=== PATIENT | female | born 1970 | race Caucasian/White ===

== ENCOUNTER 2017-08-22 06:16 | Day surgery (SDC) | payer OTHER ==
[2017-08-20 11:05] VITALS: BMI 29.2
[2017-08-22] MEDS ORDERED: ROPIVACAINE HCL 0.5% 30ML VIAL ONE (07:26)
[2017-08-22] MEDS ORDERED: MIDAZOLAM HCL 2 MG/2 ML SINGLE DOSE VIAL ONE ×2 (07:27)
[2017-08-22] MEDS ORDERED: LIDOCAINE HCL/PF 2% SDV 5ML VIAL ONE (07:29)
[2017-08-22] MEDS ORDERED: PROPOFOL 20 ML ONE (07:29)
[2017-08-22] MEDS ORDERED: ROCURONIUM BROMIDE 50 MG/5 ML VIAL ONE (07:30)
[2017-08-22] MEDS ORDERED: SUCCINYLCHOLINE CHLORIDE 200 MG/10 ML VIAL ONE (07:30)
[2017-08-22] MEDS ORDERED: DEXAMETHASONE SOD PHOSPHATE/PF 10 MG/ML SDV ONE (07:45)
--- NOTE | 2017-08-22 08:08 | HP ---
[facility] - Chief Complaint Chief Complaint: right shoulder pain - Past Medical History Allergies/Adverse Reactions: Allergies Allergy/AdvReac Type Severity Reaction Status Date / Time No Known Allergies Allergy Verified 08/20/17 10:59 ...LMP Comment: 2014 HYSTERECTOMY - Current Medications Current Medications: Home Medications Medication Instructions Recorded Hydrocodone/Acetaminophen [[place] 1 each PO Q6H PRN #40 tablet MDD 4 08/22/17 5-325 Tablet] [facility] Physical Exam - Physical Examination Vital Signs: Vital Signs Period Temp Pulse Resp BP Sys/Delatorre Pulse Ox Last 24 Hr 98 General Appearance: Well Nourished, Well Developed, Alert & Oriented x3 ENT: Clear Lung: Normal air movement Heart: Regular rate & rhythm Extremities: Other (right shoulder-+ ttp, decr rom, + neer, + galan, nvi MRI- + impingement) Neurological: Intact, Alert, Oriented [facility] Impression/Plan - Impression/Plan Impression: right shoulder impingement Operative Procedure: right shoulder arthroscopy SAD Date to be Performed: 08/22/17
[2017-08-22] MEDS ORDERED: ceFAZolin SODIUM 1 GM VIAL IVPB ONE (08:32)
[2017-08-22] MEDS ORDERED: DEXAMETHASONE SOD PHOSPHATE 4 MG/1 ML VIAL ONE (09:14)
--- NOTE | 2017-08-22 09:21 | OP ---
Operative Note - Note: Operative Date: 08/22/17 Pre-Operative Diagnosis: right shoulder impingement, adhesive capsulitis Operation: right shoulder arthroscopy, subacromial decompression, distal clavicle excision, manipulation under anesthesia Post-Operative Diagnosis: Same as Pre-op Surgeon: Jace Telles Drum Tender: Woody Gale Anesthesiologist/EVALUATOR: Bharti Pina Anesthesia: Local, MAC Specimens Removed: shavings Estimated Blood Loss (mls): 25 Blood Volume Replaced (mls): 0 Fluid Volume Replaced (mls): 500 Operative Report Dictated: Yes
--- NOTE | 2017-08-22 11:00 | OP ---
DATE OF OPERATION: 08/22/2017 PREOPERATIVE DIAGNOSIS: Right shoulder subacromial impingement and adhesive capsulitis. POSTOPERATIVE DIAGNOSIS: Right shoulder subacromial impingement and adhesive capsulitis. PROCEDURE: Right shoulder arthroscopy, subacromial decompression, distal clavicle excision and manipulation under anesthesia. DRAINS: None. COMPLICATIONS: None. SPECIMENS: Arthroscopic shavings. SURGEON: Ramos Elizondo MD BODY WORKER: NAIDA Pérez ANESTHESIA: Deep MAC anesthesia with right interscalene block. Ryan Olivas MD, and Bharti Pina CRNA. BLOOD LOSS: 25 mL. BLOOD GIVEN: None. FLUID REPLACEMENT: 500 mL. INDICATION FOR PROCEDURE: This patient is a 46-year-old female with a preoperative diagnosis of a right shoulder subacromial impingement and adhesive capsulitis. After understanding the potential risks, complications, alternatives, and benefits of surgery versus nonsurgical treatment, the patient elected to undergo this procedure. DESCRIPTION OF PROCEDURE: The patient was brought to the operating room, peripheral IV placed, IV sedation given. IV Ancef 1 g was given. Right interscalene block was performed. Deep MAC anesthesia was induced. She was placed in the beach chair position with ample padding throughout. I did a manipulation under anesthesia. I put her through a full range of motion of the right shoulder including forward flexion, abduction, internal and external rotation, and cross and abduction. I was able to feel several pops along the way and could dramatically increase her range of motion. The right upper extremity was prepped and draped in sterile fashion. The bony landmarks were marked out with a marking pen and posterior portal established with a No. 15 scalpel blade. An arthroscope was introduced into the glenohumeral joint. The area was washed out. The patient's glenohumeral joint was seen to look good. The biceps tendon, labrum, humeral head, glenoid, undersurface of the rotator cuff all looked good. Our attention then turned to the subacromial space. A lateral portal was established with a spinal needle under direct visualization. The patient had a lot of adhesive inflammatory bursitis. After an extensive debridement/bursectomy with the ArthroCare wand and straight shaver, this revealed a moderate sized subacromial and a moderate sized supraclavicular spur. Photographs were taken. Subacromial bony decompression was done with a 5.5-mm oval bur and cleaned up with a shaver and the oval bur in reverse. Everything looked quite good. There was plenty of room. The top surface of the rotator cuff was directly visualized. It looked good. There was no damage or tears and I put it through a full range of motion. There was no impingement. Next I took out the bone spur on the undersurface of the distal clavicle with the bur and the shaver. The area was copiously irrigated and washed out. Photographs were taken, all instrumentation removed. Excess saline removed. Arthroscopy portals were closed with 3-0 nylon sutures. The area was then washed and dried and covered with 2 Aquacel dressings, and the patient was put into a sling. Total operative time was about 40 minutes. There were no complications during the case. The patient tolerated the procedure quite well and was brought to the ambulatory recovery room in stable condition. RAMOS ELIZONDO M.D. [id number]
[2017-08-22 11:10] VITALS: TEMP 97.8
[2017-08-22 12:46] VITALS: BP 120/72; PULSE 74
[2017-08-22] MEDS ORDERED: ACETAMINOPHEN 325 MG TABLET (FP) PO PRN (13:13)
[2017-08-22] MEDS ORDERED: ONDANSETRON 4 MG/2 ML VIAL IVPUSH PRN (13:13)
[2017-08-22] MEDS ORDERED: LACTATED RINGERS SOLUTION 1,000 ML IV SCH (13:15)
--- NOTE | 2017-08-23 13:42 | PATH ---
Surgical Pathology Report Patient Name: ANNE-MARIE ORTEGA Med. Rec. #: [id number] /Age/Gender: 1970 (Age: 46) / F Account: [id number] Location: [facility] Taken: 08/22/2017 Received: 08/22/2017 Reported: 08/23/2017 Physicians: Jace Telles M.D. Specimen(s) Received RIGHT SHOULDER SHAVINGS Clinical History Impingement syndrome right shoulder Final Diagnosis RIGHT SHOULDER, ARTHROSCOPIC SHAVING: PORTIONS OF SYNOVIUM, CARTILAGE, SKELETAL MUSCLE AND BONE CONSISTENT WITH ARTHROSCOPIC SHAVINGS. Electronically Signed Brooks Waller M.D. Gross Description Received in formalin, labeled "right shoulder shavings," is a 4.0 x 3.2 x 0.4 cm. aggregate of rosario-yellow soft tissue fragments. A customer retention representative portion is submitted in one cassette. DL/08/22/2017 saudi/08/22/2017
== END 2017-08-22 12:35 | disposition home or self-care (01) ==
LOC: JASU-SURG 06:16
PROVIDERS: ATTEND Orthopaedic Surgery
PROC: 0RSJ4ZZ Reposition Right Shoulder Joint, Percutaneous Endoscopic Approach (ICD-10-PCS; 2017-08-22)
PROC: 0PB94ZZ Excision of Right Clavicle, Percutaneous Endoscopic Approach (ICD-10-PCS; principal; 2017-08-22 08:00)
PROC: 0RBJ4ZZ Excision of Right Shoulder Joint, Percutaneous Endoscopic Approach (ICD-10-PCS; 2017-08-22 08:00)
DX: M75.41 Impingement syndrome of right shoulder (principal); M75.01 Adhesive capsulitis of right shoulder
CPT/HCPCS: 88304-TC; 94760